=== PATIENT | male | born 1950 | race Caucasian/White ===

== ENCOUNTER 2025-07-15 08:50 | Emergency (ER) | payer MEDICARE | END 2025-07-15 10:15 | disposition home or self-care (01) | LOC: LB.ED 08:50 | DX: I10 Essential (primary) hypertension (principal); I48.91 Unspecified atrial fibrillation; Z88.8 Allergy status to other drugs, medicaments and biological substances; Z79.01 Long term (current) use of anticoagulants; Z79.84 Long term (current) use of oral hypoglycemic drugs; Z79.899 Other long term (current) drug therapy | CPT/HCPCS: 93005; 99283 ==